=== PATIENT | female | born 1975 | race Two or more races ===

== ENCOUNTER 2025-07-14 01:45 | Emergency (ER) | payer OTHER ==
[~2025-07-14] VITALS: Ht 160 cm; Wt 62.6 kg
[2025-07-14 02:55] LABS: BASO % 0.9 % (0.1-1.2); EOS # 0.15 (0.04-0.54); EOS % 1.4 % (0.7-7.0); LYMPH # 3.06 (1.18-3.74); LYMPH % 28.5 % (19.3-53.1); MEAN PLATELET VOLUME 10.10 fl (9.4-12.4); MONO # 0.80 (0.24-0.82); MONO % 7.4 % (4.7-12.5); NEUT # 6.61 (1.56-6.13); NEUT % 61.5 % (34.0-71.1); RED CELL DISTRIBUTION WIDTH 12.6 % (11.6-14.4)
[2025-07-14] MEDS ORDERED: LABETALOL HCL 20MG/4ML SYRINGE IV ONE (03:15)
[2025-07-14] MEDS ORDERED: NITROGLYCERIN 0.4 MG TAB.SUBL SL SCH (03:15)
[2025-07-14] MEDS ORDERED: ASPIRIN 325 MG TABLET PO ONE (03:15)
[2025-07-14 03:22] LABS: URINE APPEARANCE Turbid; URINE BILIRRUBIN Small (NEGATIVE); URINE BLOOD Negative; URINE COLOR Dark Yellow; URINE GLUCOSE Negative (NEGATIVE); URINE KETONE Trace (NEGATIVE); URINE LEUKOCYTE Trace; URINE NITRATE Negative; URINE PROTEIN 30 (NEGATIVE); URINE UROBILINOGEN 1.0 E.U./dl
[2025-07-14 03:27] LABS: URINE CAST 1.61 uL (0.0-1.40); URINE EPITHELIAL CELLS 191.0 uL (0.0-38.8); URINE RBC 43.1 uL (0.0-20.8); URINE WBC 105.5 uL (0.0-23.2)
[2025-07-14 03:37] LABS: ALT/SGPT 27.0 U/L (12-78); AST/SGOT 14.0 U/L (15-37); BILIRUBIN TOTAL 0.42 mg/dL (0.3-1.2); BUN CREA RATIO 18.0 (7.0-25.0); CREATININE SERUM 0.57 mg/dL (0.55-1.02); GFR 113.69; GLOBULINA 3.1 G/DL (2.4-3.5); GLUCOSE FASTING 108.0 mg/dL (65-100); OSMOLALITY SERUM 281.0 MOSM/KG (275-295)
[2025-07-14 03:46] LABS: COVID-19 AG NEGATIVE (NEGATIVE)
[2025-07-14 04:06] LABS: URINE BACTERIA > 9821.5 uL (0.0-1933); URINE MUCUS SCANT
[2025-07-14] MEDS ORDERED: KETOROLAC TROMETHAMINE 30 MG VIAL ONE (06:39)
[2025-07-14] MEDS ORDERED: KETOROLAC TROMETHAMINE 30 MG VIAL IV ONE (06:45)
[2025-07-14] MEDS ORDERED: CEFTRIAXONE SODIUM 2,000 MG VIAL IV ONE (06:45)
[2025-07-14] MEDS ORDERED: CEFTRIAXONE SODIUM 2,000 MG VIAL ONE (07:14)
[2025-07-14] MEDS ORDERED: MACROBID 100 M100 MG PO (09:19)
[2025-07-14] MEDS ORDERED: DICLOFENAC SODI75 MG PO (09:19)
== END 2025-07-14 10:31 | disposition home or self-care (01) ==
LOC: ER 01:45
PROVIDERS: Preventive Medicine Public Health & General Preventive Medicine
DX: N39.0 Urinary tract infection, site not specified (principal); I95.89 Other hypotension; Z20.822 Contact with and (suspected) exposure to COVID-19